=== PATIENT | male | born 1935 | race Caucasian/White ===

== ENCOUNTER 2016-07-16 19:21 | Emergency (ER) | payer MEDICARE ==
[2016-07-16] MEDS ORDERED: ALBUTEROL/IPRATROPIUM 2.5/0.5 MG 3 ML/EACH DOSE ONE (20:56)
--- NOTE | 2016-07-16 21:04 | RAD ---
07/16/2016 9:00 PM CHEST - 2 VIEWS History: Wheezing, shortness of breath Comparison: 07/09/2014 Findings: Two views of the chest are obtained. The lungs demonstrate perihilar, central airspace opacity. Possible interstitial component is also present. Findings are worrisome for edema, though multifocal pneumonia could have a similar appearance. No effusion or pneumothorax. The cardiomediastinal silhouette is unremarkable.. The osseous structures are intact.. IMPRESSION: Perihilar, central airspace and possible interstitial opacity worrisome for edema or pneumonia. No effusion is present. Follow-up as clinically warranted.
[2016-07-16] MEDS ORDERED: LEVOFLOXACIN 250 MG TABLET ONE (21:43)
[2016-07-16] MEDS ORDERED: PREDNISONE 20 MG TABLET ONE (21:43)
[2016-07-16] MEDS ORDERED: LEVETIRACETAM 500 MG TABLET ONE (21:44)
== END 2016-07-16 22:26 | disposition home or self-care (01) ==
LOC: ED 19:21
DX: J18.9 Pneumonia, unspecified organism (principal); J44.9 Chronic obstructive pulmonary disease, unspecified; R73.03 Prediabetes; F17.210 Nicotine dependence, cigarettes, uncomplicated
CPT/HCPCS: 71020; 94640; 99283 ×2; A9270 ×2; J7512

== ENCOUNTER 2016-07-29 12:58 | Emergency (ER) | payer MEDICARE ==
[2016-07-29] MEDS ORDERED: IOPAMIDOL 370 (76%) 100 ML VIAL IV ONE (12:59)
[2016-07-29] MEDS ORDERED: METHYLPRED SOD SUCCINATE 125 MG VIAL ONE (13:34)
[2016-07-29] MEDS ORDERED: ALBUTEROL/IPRATROPIUM 2.5/0.5 MG 3 ML/EACH DOSE ONE (13:35)
[2016-07-29 13:43] LABS: ABSOLUTE NEUTROPHIL COUNT 8.6 K/mm3 (1.8-7.7); BASO # 0.1 K/mm3 (0.0-0.2); BASO % 0.6 % (0.2-1.0); EOS # 0.2 (0.0-0.5); EOS % 1.7 % (0.9-2.9); HEMATOCRIT 44.8 % (32.0-52.0); HEMOGLOBIN 14.5 gm/l (14.0-18.0); IMM NEUT # 0.1 K/mm3 (0-0.2); IMM NEUT% 1.2 % (0-1); LYMPH # 0.5 (1.0-4.8); LYMPH % 5.2 % (15-45); MEAN CELL VOLUME 86.8 fl (80.0-94.0); MEAN CORPUSCULAR HEMOGLOBIN 28.1 pg (27.0-31.0); MEAN CORPUSCULAR HGB CONC 32.4 g/dl (33.0-37.0); MEAN PLATELET VOLUME 10.1 fl (7.4-10.4); MONO # 0.7 (0.0-0.8); MONO % 6.9 % (4-12); NEUT % 84.4 % (43-75); PLATELET COUNT 160 K/mm3 (130-400)
[2016-07-29 13:49] LABS: ALB/GLOB RATIO 1.1 (>1.0); ALBUMIN 3.6 gm/dL (3.5-5.7); CALCIUM 9.8 mg/dL (8.6-10.3)
[2016-07-29 13:57] LABS: CKMB ISOENZYME 4.5 ng/ml (0.6-6.3); TROPONIN I 0.04 ng/ml (0.0-0.06)
--- NOTE | 2016-07-29 14:19 | RAD ---
EXAMINATION:CHEST - 2 VIEWS CLINICAL INDICATION: Difficulty breathing. COMPARISON: 07/16/2016 FINDINGS: Oral and cardiomegaly is again noted. Perihilar opacities with peribronchial thickening and possible hilar adenopathy is unchanged from the prior study. There is no pleural effusion. Severe hyperinflation is again noted. The osseous structures are unremarkable for age. IMPRESSION: Stable perihilar opacities which again may reflect an atypical pneumonia. These findings are similar to slightly increased in comparison to the prior exam. Severe emphysematous change and hyperinflation is again noted.
[2016-07-29] MEDS ORDERED: SODIUM CHLORIDE 0.9% 500 ML ONE (14:38)
--- NOTE | 2016-07-29 15:34 | CT ---
CTA CHEST FOR PE History: Dyspnea with tachycardia. Comparison: Chest x-ray dated 07/16/2016. Procedure: 1 mm axial images were obtained through the chest following the administration of 80cc's of Isovue-370 intravenous contrast. Stacked reconstructed 3 mm images were then photographed in the axial, coronal and sagittal planes. 3-D reconstructed MIP images were also performed on the scanner workstation. Findings: Images demonstrate a normal appearance of the visualized thyroid gland. There are a few mediastinal lymph nodes observed with a peritracheal lymph node observed on image 23 measuring 11 mm in size. There is extensive soft tissue prominence seen within the region of the right hilum as well as extending caudal to the left hilum along the left cardiac margin. The soft tissue at the right hilar region measures approximately 4.4 x 5.6 cm. The heart size is mildly prominent. There is atherosclerotic calcification of the aorta and aortic arch. No discrete pericardial abnormalities are visualized. The pulmonary arterial tree is adequately opacified with no definite filling defects identified within the main, primary, or secondary pulmonary arterial branches to suggest the presence of a pulmonary embolus. There is evidence of significant narrowing of the bronchial segments to large portion of the right lower lobe and the right middle lobe. Central narrowing of the bronchial segments to the left upper and left lower lobes is also observed due to the soft tissue mass is present. Some associated parenchymal nodularity is seen within the lung adjacent to the soft tissue masses, particularly evident within the right middle, right lower lobes and the left upper lobe. There appears to be a small left pleural effusion. Scans through the upper abdomen demonstrate a low-attenuation focus within the right hepatic lobe, likely reflecting a small cyst. There are 2 large left renal cyst observed, stable from their appearance on the prior abdomen pelvis CT exam dated 07/11/2014. Prominent multilevel thoracic degenerative changes are present. Impression: 1. No current findings of a pulmonary embolus visualized. 2. Extensive soft tissue density encompassing the right hilum as well as the caudal portion of the left hilum extending along the left cardiac margin and producing associated narrowing of the bronchial segments to the left upper lobe, left lower lobe, the right middle lobe, and occlusion of the bronchial segments to the right lower lobe. Considerations include a lymphoproliferative process or primary or metastatic neoplasm. There is associated nodularity seen within the lung parenchyma adjacent to the central soft tissue masses within the right middle, right lower and left upper lobes. 3. A small left pleural effusion. 4. Cardiomegaly. 5. Multilevel thoracic degenerative changes. 6. Suggested renal and hepatic cysts.
[2016-07-29] MEDS ORDERED: AZITHROMYCIN 250 MG TABLET ONE (16:44)
== END 2016-07-29 17:16 | disposition home or self-care (01) ==
LOC: ED 12:58
DX: J44.1 Chronic obstructive pulmonary disease with (acute) exacerbation (principal); R91.8 Other nonspecific abnormal finding of lung field; F17.210 Nicotine dependence, cigarettes, uncomplicated
CPT/HCPCS: 83880; 85379; 85025; 82553; 80053; 84484; 71020; 71275; 94640; 99284 ×2; 96374; 96361; J2930; A9270; J7040; Q9967

== ENCOUNTER 2016-07-31 14:19 | Emergency (ER) | payer MEDICARE ==
[2016-07-31] MEDS ORDERED: ALBUTEROL/IPRATROPIUM 2.5/0.5 MG 3 ML/EACH DOSE ONE (14:56)
[2016-07-31] MEDS ORDERED: ALBUTEROL NEB 2.5 MG/3 ML VIAL.NEB NEB ONE (14:56)
[2016-07-31 15:32] LABS: ABSOLUTE NEUTROPHIL COUNT 12.5 K/mm3 (1.8-7.7); BASO % 0.2 % (0.2-1.0); EOS % 0.1 % (0.9-2.9); HEMATOCRIT 43.8 % (32.0-52.0); IMM NEUT # 0.2 K/mm3 (0-0.2); IMM NEUT% 1.1 % (0-1); LYMPH # 0.2 (1.0-4.8); LYMPH % 1.7 % (15-45); MEAN CELL VOLUME 86.9 fl (80.0-94.0); MEAN CORPUSCULAR HEMOGLOBIN 27.8 pg (27.0-31.0); MEAN PLATELET VOLUME 10.4 fl (7.4-10.4); MONO # 0.4 (0.0-0.8); MONO % 2.7 % (4-12); NEUT % 94.2 % (43-75); PLATELET COUNT 165 K/mm3 (130-400)
--- NOTE | 2016-07-31 15:45 | RAD ---
07/31/2016 3:40 PM CHEST-AP BEDSIDE History: Shortness of breath Comparison: 07/29/2016 Findings: Single AP view of the chest is obtained. The lungs demonstrate mild worsening of the patient's perihilar, central airspace opacity and interstitial disease. Hyperinflation was noted on prior study. The cardiomediastinal silhouette is unremarkable. The osseous structures demonstrate degenerative changes of the shoulders bilaterally, left greater than right.. EKG leads overlie the chest. IMPRESSION: Mild worsening of the patient's perihilar, central airspace and interstitial opacity. Findings are worrisome for pneumonia, possibly viral pathogen. Edema could also similar appearance, though no effusion is noted at this time.
[2016-07-31 15:47] LABS: ARTERIAL BLOOD GAS PCO2 40.5 mmHg (35.0-45.0); ARTERIAL BLOOD GAS PO2 67.5 mmHg (80.0-90.0); ARTERIAL BLOOD GAS pH 7.371 (7.350-7.450)
[2016-07-31 15:48] LABS: ARTERIAL BLOOD GAS BASE EXCESS -2.1 mmol/L (-2.0-2.0); ARTERIAL BLOOD GAS HCO3 22.9 mmol/L (22.0-28.0)
[2016-07-31] MEDS ORDERED: CEFTRIAXONE 1 GRAM DUPLEX 50 ML IV ONE (15:51)
[2016-07-31] MEDS ORDERED: AZITHROMYCIN 500 MG VIAL ONE (15:51)
[2016-07-31] MEDS ORDERED: SODIUM CHLORIDE 0.9% 250 ML IV ONE (15:51)
[2016-07-31 16:23] LABS: TOTAL CELLS COUNTED 100
[2016-07-31 16:25] LABS: BAND 0 % (0-10); BASOPHIL 0 % (0-1); EOSINOPHIL 0 % (1-3); LYMPHOCYTE 2 % (15-45); MONOCYTE 4 % (4-12); NEUTROPHILS 94 % (43-75); PLATELET ESTIMATE NORMAL (NORMAL)
== END 2016-07-31 17:27 | disposition short-term general hospital (02) ==
LOC: ED 14:19
DX: R91.8 Other nonspecific abnormal finding of lung field (principal); J44.9 Chronic obstructive pulmonary disease, unspecified; I48.91 Unspecified atrial fibrillation; R73.03 Prediabetes; F17.210 Nicotine dependence, cigarettes, uncomplicated
CPT/HCPCS: 82803; 85025; 87040 ×2; 87205; 84484; 71010; 94640 ×2; 36600; 99285 ×2; 96365; 96367; 93005; J0456; J7050; J0696